=== PATIENT | female | born 1985 | race Caucasian/White ===

== ENCOUNTER 2018-11-27 18:35 | Emergency (ER) | payer OTHER ==
[~2018-11-27] VITALS: Ht 180.3 cm; Wt 126.6 kg
[~2018-11-27 18:35] MED LIST: ACET-787 PO; DARU800T PO; EMTR1TAB12 PO; LEVE1000 PO; RALT400T PO; RITO100T PO
[2018-11-27 18:38] VITALS: BP 116/61
--- NOTE | 2018-11-27 18:38 | NUR ---
BIBA TO BED 4
--- NOTE | 2018-11-27 18:41 | NUR ---
PT BIB AMBULANCE TO THE ED WITH THE CHIEF C/O DIZZINESS AND NAUSEA. VOMITED X5 TODAY. NO BLOOD IN VOMIT. PT FEELS WEAK AND DIZZY. VSS. LUNGS CLEAR. ABDOMEN SOFT ROUND AND NON-TENDER. ACTIVE BOWEL SOUND. DENIES DIARRHEA. STATES PAIN OF 0/10 AT THIS TIME. HX OF SEIZURE, VERTIGO, HEP. C, HIV AND GALL BLADDER POSITIVE.
--- NOTE | 2018-11-27 19:07 | NUR ---
REPORT GIVEN TO CARDIOPULMONARY SUPERVISOR RN FOR CONTINUITY OF CARE. PT STABLE.
--- NOTE | 2018-11-27 19:09 | NUR ---
RECEIVED REPORT FROM DENISE BERNAL.
[2018-11-27] MEDS ORDERED: ONDANSETRON 4 MG/2 ML VIAL IVP ONE (19:20)
[2018-11-27 19:33] LABS: APPEARANCE,URINE SL CLOUDY (CLEAR); BILIRUBIN,URINE NEGATIVE (NEGATIVE); BLOOD, URINE NEGATIVE (NEGATIVE); COLOR,URINE YELLOW (YELLOW); LEUKOCYTE ESTERASE ,URINE 1+ (NEGATIVE); NITRITE, URINE NEGATIVE (NEGATIVE); UGLUCOSE NEGATIVE (NEGATIVE)
[2018-11-27 19:39] LABS: BASOPHILS % (AUTO) 0.1 % (0.0-2.0); EOSINOPHILS % (AUTO) 0.4 % (0.0-4.0); HEMATOCRIT 36.5 % (36-48); HEMOGLOBIN 12.3 g/dL (12.0-16.0); LYMPHOCYTES # (AUTO) 0.9 K/uL (2.5-16.5); LYMPHOCYTES % (AUTO) 22.8 % (20.5-51.1); MEAN CORPUSCULAR HEMOGLOBIN 30 pg (27-31); MEAN CORPUSCULAR HGB CONC 34 g/dL (33-37); MEAN CORPUSCULAR VOLUME 89.8 fL (80-94); MONOCYTES # (AUTO) 0.1 K/uL (0.8-1.0); MONOCYTES % (AUTO) 3.5 % (1.7-9.3); NEUTROPHILS % (AUTO) 73.2 % (42.2-75.2); PLATELET COUNT (AUTO) 101 K/uL (140-450); RED BLOOD CELL COUNT(AUTO) 4.07 MIL/uL (4.20-5.40); RED CELL DISTRIBUTION WIDTH 14.2 % (11.6-13.7); WHITE BLOOD COUNT (AUTO) 4.1 K/uL (4.8-10.8)
[2018-11-27 19:47] LABS: RBC,URINE 0-5 /HPF (0-5); WBC,URINE >25 (MANY) /HPF (0-5)
--- NOTE | 2018-11-27 19:53 | NUR ---
RECEIVED 4 MG ZOFRAN IVP FOR NAUSEA. WILL CONTINUE TO MONITOR FOR EFFECTIVENESS.
[2018-11-27 19:57] LABS: ALBUMIN 3.4 g/dL (3.4-5.0); ANION GAP 12.3 (8-16); CARBON DIOXIDE 26.5 mmol/L (21-32); CREATININE 0.8 mg/dL (0.6-1.3); POTASSIUM 3.8 mmol/L (3.5-5.1); TOTAL BILIRUBIN 0.5 mg/dL (0.0-1.0)
[2018-11-27] MEDS ORDERED: cefTRIAXone 250 MG in LIDOCAINE MPF 1% - 5 mL VIAL 0.9 ML IM ONE (20:25)
--- NOTE | 2018-11-27 20:30 | NUR ---
PT STATES SHE IS STILL FEELING NAUSEOUS BUT IS UNABLE TO VOMIT. CARL JEAN NOTIFIED.
--- NOTE | 2018-11-27 20:50 | NUR ---
PT RECEIVED 250 MG ROCEPHIN IM FOR UTI. NO ADVERSE SIDE EFFECTS NOTED.
[2018-11-27 20:55] VITALS: BP 99/57
--- NOTE | 2018-11-27 20:55 | NUR ---
Patient discharged with v/s stable. Written and verbal after care instructions given and explained. Patient alert, oriented and verbalized understanding of instructions. Ambulatory with steady gait. All questions addressed prior to discharge. ID band removed. Patient advised to follow up with PMD. Rx of Keflex and Zofran given. Patient educated on indication of medication including possible reaction and side effects. Opportunity to ask questions provided and answered.
== END 2018-11-27 20:55 | disposition home or self-care (01) ==
LOC: MED 18:35
DX: N39.0 Urinary tract infection, site not specified (principal); F41.9 Anxiety disorder, unspecified; Z88.5 Allergy status to narcotic agent; Z88.1 Allergy status to other antibiotic agents; Z86.73 Personal history of transient ischemic attack (TIA), and cerebral infarction without residual deficits; Z79.899 Other long term (current) drug therapy
CPT/HCPCS: 36415; 80053; 81001; 81025; 82150; 83690; 85025; 87086; 96372; 96374; 99283; J0696; J2001; J2405